=== PATIENT | female | born 1990 | race Caucasian/White ===

== ENCOUNTER 2020-07-19 19:35 | Emergency (ER) | payer OTHER ==
[~2020-07-19] VITALS: Ht 154.9 cm; Wt 81.6 kg
[2020-07-19 20:48] LABS: CLARITY,URINE CLEAR (CLEAR); COLOR,URINE YELLOW (YELLOW); KETONES,URINE NEGATIVE (NEGATIVE); LEUKOCYTE ESTERASE ,URINE NEGATIVE (NEGATIVE); NITRITE,URINE NEGATIVE (NEGATIVE); PREGNANCY TEST, URINE NEGATIVE (NEGATIVE); PROTEIN,URINE DIPSTICK NEGATIVE (NEGATIVE); URINE UROBILINOGEN 0.2 mg/dL (0.2 - 1)
[2020-07-19 20:56] LABS: BACTERIA,URINE MODERATE /HPF; EPITHELIAL CELLS,URINE MODERATE /LPF
== END 2020-07-19 23:20 | disposition home or self-care (01) ==
LOC: ER 19:57
DX: R07.81 Pleurodynia (principal); M79.18 Myalgia, other site
CPT/HCPCS: 81001; 81025; 99282